=== PATIENT | male | born 2000 ===

== ENCOUNTER 2022-11-19 11:50 | Emergency (ER) | payer SELFPAY ==
[~2022-11-19] VITALS: Ht 172.2 cm; Wt 72.0 kg
[2022-11-19] MEDS ORDERED: MUPI22OI2 TP (12:18)
--- NOTE | 2022-11-19 12:18 | ED EENT ---
History of Present Illness General Chief Complaint: Nasal Problems Stated Complaint: NASAL INFECTION Nursing Triage Note: CUT HIS NOSE ONE MONTH AGO, AND NOW RED AND PAINFUL. Source: patient Exam Limitations: no limitations (GARCIA SALAZAR) History of Present Illness Date Seen by Provider: Nov 19, 2022 Time Seen by Provider: 12:15 Initial Comments Is a 22-year-old male who presents ED with right nose pain. Patient states 1 month ago he cut the inside of his right naris. He states he was trimming his hair in his nose. Had a small amount of bleeding after the end. Since then he has had increased pain with some mild redness and crusting around the area since the injury. Denies applying topical antibiotic ointment. Up-to-date on his tetanus. Denies fever, chills, facial swelling or redness, chest pain, cough, shortness of breath, Dustin pain, headache, dizziness. Patient denies of any drainage from the nose. (GARCIA SALAZAR) Allergies and Home Medications Allergies Coded Allergies: No Known Drug Allergies (Unverified , 11/19/22) Patient Home Medication List Home Medication List Reviewed: Yes (GARCIA SALAZAR) Mupirocin (Mupirocin) 2 % Oint...g., 22 GM TP BID Prescribed by: TIFFANI SHERIFF on 11/19/22 1218 Review of Systems Review of Systems Constitutional: No chills, No diaphoresis, No fever, No malaise, No weakness Eyes: Denies Blurred Vision, Denies Drainage, Denies Decreased Acuity Ears: Denies Dizziness, Denies Pain Nose: denies clots; congestion, pain Mouth: denies loose teeth Throat: denies pain, denies swelling, denies discharge Respiratory: No cough, No short of breath Cardiovascular: No chest pain Gastrointestinal: No abdominal pain, No constipation, No diarrhea, No nausea, No vomiting Musculoskeletal: No back pain, No joint pain Skin: No change in color, No change in hair/nails (GARCIA SALAZAR) All Other Systems Reviewed Negative Unless Noted: Yes (GARCIA SALAZAR) Past Vfoualt-Kwlbjs-Uifwej Hx Patient Social History Tobacco Use?: No Use of E-Cig and/or Vaping dev: No Substance use?: Yes Substance type: Marijuana Substance frequency: Couple times a week Alcohol Use?: Yes Alcohol type: Beer, Hard Liquor Alcohol Frequency: Couple times a week (GARCIA SALAZAR) Past Medical History Surgery/Hospitalization HX: DENIES (GARCIA SALAZAR) Physical Exam Vital Signs Vital Signs - First Documented 11/19/22 12:05 Temp 37.2 Pulse 61 Resp 16 B/P (MAP) 102/54 (70) Pulse Ox 100 O2 Delivery Room Air (DEBORA LAZAR MD) Height, Weight, BMI Height: '" Weight: lbs. oz. kg; 24.00 BMI Method: General Appearance: WD/WN, no apparent distress Eyes: bilateral eye normal inspection, bilateral eye PERRL, bilateral eye EOMI Ears: bilateral ear auricle normal, bilateral ear canal normal, bilateral ear TM normal Nose: other (Small purulent crusty drainage in the right naris. No fluctuant mass. Mild localized erythema. 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 No obvious abscess. No pain to palpation. No facial swelling or erythema that is noted. Appears to be localized in the right naris. Concerning for infection secondary to the cut. He is up-to-date on his tetanus. Will discharge with mupirocin topical at this time. Denies history of MRSA. Recommend follow-up with PCP in 2 to 3 days for reevaluation. Does not appear toxic or septic. Return precaution were discussed. Patient does not need oral antibiotics at this time (GARCIA SALAZAR) Impression Primary Impression: Infection of nose Disposition: HOME, SELF-CARE Condition: Stable Departure-Patient Inst. Decision time for Depature: 12:17 (GARCIA SALAZAR) Referrals: [facility] – [place] MARYJO,LOCAL PHYSICIAN (PCP) Primary Care Physician Patient Instructions: Cellulitis (Skin Infection), Adult (DC) Add. Discharge Instructions: If increased redness, swelling or pain to return back to ED. Follow-up with PCP in 2 to 3 days for reevaluation. All discharge instructions reviewed with patient and/or family. Voiced understanding. Scripts Mupirocin (Mupirocin) 2 % Oint...g. 22 GM TP BID for 14 Days, #1 EA Prov: GARCIA SALAZAR 11/19/22 ATTENDING PHYSICIAN NOTE: I was physically present as attending physician in the emergency department during the care of this patient, but I was not directly involved in the decision making or delivery of care for this patient. (DEBORA LAZAR MD) GARCIA SALAZAR Nov 19, 2022 12:18 DEBORA LAZAR MD Nov 20, 2022 12:05
[2022-11-19 12:25] VITALS: BP 130/84
== END 2022-11-19 12:25 | disposition home or self-care (01) ==
LOC: ER 11:53
DX: J32.9 Chronic sinusitis, unspecified (principal)
CPT/HCPCS: 99282